=== PATIENT | male | born 1945 | race Caucasian/White ===

== ENCOUNTER 2016-11-10 15:08 | Inpatient (IN) | payer MEDICARE ==
[~2016-11-10] VITALS: Ht 188 cm; Wt 134.7 kg
[2016-11-11] MEDS ORDERED: CARV6.25 PO (10:26)
[2016-11-11] MEDS ORDERED: AMLO5TAB2 PO (10:26)
[2016-11-11] MEDS ORDERED: PRIL20CA9 PO (10:26)
[2016-11-11] MEDS ORDERED: GLIP1TAB60 PO (10:26)
[2016-11-11] MEDS ORDERED: MELO7.5T4 PO (10:26)
[2016-11-11] MEDS ORDERED: SITA1TAB2 PO (10:26)
[2016-11-11] MEDS ORDERED: SIMV20TA PO (10:26)
[2016-11-11] MEDS ORDERED: ALLO300T2 PO (10:26)
[2016-11-11] MEDS ORDERED: HYDR-3580 PO (10:26)
[2016-11-11] MEDS ORDERED: METF1000 PO (10:26)
[2016-11-11] MEDS ORDERED: VITA20004 PO (10:40)
[2016-11-11] MEDS ORDERED: ASPI1TAB69 PO (10:40)
[2016-11-11] MEDS ORDERED: VITA100064 PO (10:40)
[2016-11-11] MEDS ORDERED: OMEGCAP PO (10:40)
[2016-11-11] MEDS ORDERED: MULTTAB67 PO (10:40)
[2016-11-11] MEDS ORDERED: CALC1TAB87 PO (10:40)
--- NOTE | 2016-11-13 12:27 | MH ---
cc: TONY PLATA MD DATE OF ADMISSION 11/19/2016 ADMITTING DIAGNOSIS Severe osteoarthritis of the right hip, pain right hip, and gait disturbance. HISTORY The patient is a 71-year-old white male who has had a rather lengthy history of pain referable to his hip area. He had developed arthritic involvement initially involving his left hip that became unresponsive to conservative management and within the past nine or more years underwent a left total hip arthroplasty that was completed in an uncomplicated manner and the patient having done quite well thereafter. Over the following years, he became gradually more symptomatic with similar pain involving his right hip for which he attempted to conform to ongoing conservative modalities which included use of [id number] anti-inflammatory medications and the patient electing to conform to an exercise program that he had been instructed to follow as related to treatment involving his left hip. He became gradually more incapacitated with pain and subsequently began to require use of a cane as a full-time ambulatory aid. His pain became more difficult to manage and he was subsequently prescribed hydrocodone 7.5 mg per his primary care physician for ongoing management. The patient presented to the underlying physician in October of this year reporting significant incapacitation with regards to all activities of daily living. His x-ray studies revealed severe degenerative changes of his hip joint with subtotal obliteration of the joint space and deformation of the femoral head with suggestion for subchondral cyst formation. Findings and treatment options were reviewed with the patient at that time. The pros and cons of additional conservative modalities versus operative intervention involving total hip replacement were outlined in detail. Emphasis was made regarding the fact that the decision to proceed with surgery would be left entirely to the patient's discretion. The patient readily admitted that he felt he had exhausted all modes of conservative treatment and was not desirous of trying an alternative to additional medication, nor did he feel that additional physical therapy at this time would prove to be of any additional benefit. He was desirous of weaning himself from his cane as his progress might permit and given the favorable outcome that he had noted from previous surgery involving his left hip, he expressed a desire to proceed with similar treatment at this time. In compliance with his wishes, he is currently being admitted in order that right total hip arthroplasty be accomplished. PAST MEDICAL HISTORY Past medical history, hospitalizations and surgeries in addition to his left total hip arthroplasty have included: 1. Insertion of her cardiac stent 2. Colonoscopy 3. Upper endoscopy 4. Medical evaluation for a fever of undetermined origin. The patient's medical illnesses include: 1. Hypertension 2. Gout 3. Diabetes 4. Elevated cholesterol 5. Ankylosing spondylitis His current medications: 1. Amlodipine 5 mg twice daily 2. Carvedilol 6.25 mg twice daily 3. Omeprazole 20 mg daily 4. Allopurinol 300 mg daily 5. Meloxicam 7.5 mg daily 6. Metformin 1000 mg twice daily 7. Simvastatin 20 mg daily 8. Glipizide 0.5 mg twice daily 9. Januvia 100 mg daily 10. Hydrocodone 7.5 mg p.r.n. ALLERGIES THE PATIENT DESCRIBES A DRUG ALLERGY TO LEVAQUIN THAT HAS BEEN ASSOCIATED WITH RASH FORMATION. HE INDICATES THAT CODEINE HAS BEEN ASSOCIATED WITH NAUSEA, ALTHOUGH HE TOLERATED HYDROCODONE WITH ADVERSE SIDE EFFECTS NOTED. REVIEW OF SYSTEMS He does wear glasses. Denies headache, seizure or syncope. No sinus congestion or epistaxis. Auditory acuity intact. No tinnitus. No bleeding gums or dysphagia. Denies cough, shortness of breath, upper respiratory infection, pneumonia or tuberculosis. No angina or heart disease. He is medically managed for hypertension. His appetite is good. Bowel movements are regular. No hepatitis, gallbladder disease or ulcers. There is a positive history of hemorrhoids. No urinary tract infection. History of kidney stones with spontaneous passage. No fractures. No psychiatric illness. His remaining review of systems is unremarkable and noncontributory. FAMILY HISTORY The patient has been 51 years. His is 68 years of age and is indicates to be in good health. Two daughters described as being in good health. Family history is positive for hypertension, diabetes, tuberculosis, cancer involving the kidneys, the stomach, uterus and thyroid and positive history of heart disease. SOCIAL HISTORY The patient has been retired for over 17 years having worked in [employer]. He completed two years of college education. Denies active use of tobacco, ethanol consumption in a limited basis in the form of one to two beers periodically. PHYSICAL EXAMINATION Height 62 inches, weight 226 pounds. GENERAL: An alert, oriented and responsive 71-year-old white male who sits quietly upon the examination table with no obvious distress. HEAD, EARS, EYES, NOSE AND THROAT: Pupils are equally round and reactive to light. Extraocular movements full. Sclerae clear. External nares clear. External auditory canals clear. Dental intact. Mucous membranes pink and moist. Pharynx clear. NECK: Supple. Active range of motion with mild discomfort at the extremes of motion that the patient indicates being chronic in nature. Carotid pulse bilaterally. Trachea midline. Thyroid without enlargement. LUNGS: Clear to auscultation and percussion. No CVA tenderness. No discomfort throughout the dorsal lumbar spine. HEART: Regular rhythm. No murmur or gallop. ABDOMEN: Soft, nontender. Bowel sounds present. RECTAL: Per primary care physician. EXTREMITIES: Right hip, no localizing tenderness to palpation. There is restricted mobility of the hip joint in all ranges assessed being most pronounced with internal rotation and pain at the extremes of motion. No sensation of instability. Straight-leg raising negative at 80 degrees. Dung sign positive. Distal sensory grossly intact. Pronounced antalgic gait with cane support. NEUROLOGIC: Cranial nerves II-XII grossly intact. IMPRESSION Severe osteoarthritis of the right hip, pain right hip, gait disturbance. PLAN Right total hip arthroplasty. The nature of the planned surgical procedure, the potential complications and risks associated, the expectations of surgery and the consent form were thoroughly reviewed with the patient in the presence of his prior to admission to the hospital. Lino has indicated his full understanding regarding all of the above and given consent to proceed with treatment as outlined. Medical evaluation and clearance for surgery will be completed by his primary care physician Dr. Bhavin Harris. MD ENEIDA Key/DON /11:58 AM /12:13 PM
[2016-11-19] MEDS ORDERED: POVIDONE IODINE 5% (ANTISEPSIS KIT) 4 APPLICATIONS EACH NARE PRN (06:15)
[2016-11-19] MEDS ORDERED: SODIUM CHLORID 0.9% 500 ML IV PRN (06:15)
[2016-11-19] MEDS ORDERED: METOPROLOL TARTRATE 25 MG TAB PO PRN (06:15)
[2016-11-19] MEDS ORDERED: INSULIN HUMAN REGULAR 1,000 UNITS/10 ML VIAL SQ PRN (06:15)
[2016-11-19] MEDS ORDERED: LACTATED RINGER'S 1000 ML INJ 1,000 ML IV SCH (06:15)
[2016-11-19 06:29] VITALS: BP 137/86; PULSE 65; RESP 16; TEMP 99.1; O2SAT 97
[2016-11-19] MEDS ORDERED: ceFAZolin 2 GM PREMIX 50 ML ONE (06:39)
[2016-11-19] MEDS ORDERED: TRANEXAMIC ACID 1 GM PRIOR TO PROCEDURE IV SCH ×2 (07:00)
[2016-11-19] MEDS ORDERED: TRANEXAMIC ACID 1 GM POST-OP IV SCH ×2 (07:00)
[2016-11-19] MEDS ORDERED: POVIDONE IODINE 7.5% SCRUB 118 ML BOTTLE TOPICAL SCH (07:00)
[2016-11-19] MEDS ORDERED: ceFAZolin 2 GM PREMIX 50 ML IV SCH (07:00)
[2016-11-19] MEDS ORDERED: MIDAZOLAM HCL 2 MG/2 ML VIAL ONE (07:03)
[2016-11-19] MEDS ORDERED: DEXAMETHASONE SOD PHOS 4 MG/ML VIAL ONE (07:03)
[2016-11-19] MEDS ORDERED: ceFAZolin INJ 1,000 MG VIAL ONE (07:12)
[2016-11-19] MEDS ORDERED: fentaNYL CITRATE 250 MCG/5 ML AMP ONE (09:57)
[2016-11-19] MEDS ORDERED: TRANEXAMIC ACID INJ 1,000 MG in SODIUM CHLORIDE 0.9% INJ 100 ML IV SCH (10:00)
[2016-11-19] MEDS ORDERED: ONDANSETRON HCL 4 MG/2 ML VIAL IVP PRN (10:00)
[2016-11-19] MEDS ORDERED: ACETAMINOPHEN/HYDROcodone 325 MG/5 MG TAB PO PRN ×2 (10:00)
[2016-11-19] MEDS ORDERED: SODIUM CHLORIDE 0.9% FLUSH 5 ML FLUSH IVF PRN (10:00)
[2016-11-19] MEDS ORDERED: ACETAMINOPHEN 325 MG TAB PO PRN (10:00)
[2016-11-19] MEDS ORDERED: Post-op Orders (for Pharmacy) MISC XX ONE (10:00)
[2016-11-19] MEDS ORDERED: NALOXONE HCL 0.4 MG/ML AMP IV PRN (10:00)
[2016-11-19] MEDS ORDERED: MORPHINE SULFATE 30 MG/30 ML PCA IV SCH (10:00)
[2016-11-19] MEDS ORDERED: DOCUSATE SODIUM 100 MG CAP PO PRN (10:00)
[2016-11-19] MEDS ORDERED: MISCELLANEOUS PHARMACY INFORMATION XX ONE (10:00)
[2016-11-19] MEDS ORDERED: diphenhydrAMINE HCL 25 MG CAP PO PRN (10:00)
[2016-11-19] MEDS ORDERED: *morphine SULFATE 8 MG/ML PERIprocedure ONLY ONE ×2 (10:03→10:28)
[2016-11-19] MEDS: DEXT 5%-NACL 0.45% 1000 ML INJ 1,000 ML IV SCH ×2 (10:50→23:24)
--- NOTE | 2016-11-19 11:22 | RADRPT ---
EXAM DATE/TIME: 11/19/2016 11:09 [facility] COMPARISON: No previous studies available for comparison. INDICATIONS : Post op right hip surgery. MEDICAL HISTORY : Hypertension. ENCOUNTER: Initial ACUITY: 1 day PAIN SCORE: 0/10 LOCATION: Right Hip. FINDINGS: The patient is status post a total hip arthroplasty with a bipolar prosthesis. Prosthesis is well-sea mojgan. Alignment is anatomic. A fracture is not appreciated. CONCLUSION: Anatomic alignment. Derrek Roe MD FACR Board Certified Radiologist. This report was verified electronically.
[2016-11-19 12:00] VITALS: BP 144/77; PULSE 82; RESP 17; TEMP 95.5; O2SAT 99
[2016-11-19] MEDS ORDERED: ePHEDrine/NS 25 MG/5 ML SYR IV ONE (12:00)
[2016-11-19] MEDS ORDERED: ONDANSETRON HCL 4 MG/2 ML VIAL IV PUSH ONE (12:00)
[2016-11-19] MEDS ORDERED: PROPOFOL 200 MG/20 ML AMP IV ONE (12:00)
[2016-11-19] MEDS ORDERED: PHENYLEPH/NS 1000 MCG/10 ML SYR IV ONE (12:00)
[2016-11-19] MEDS ORDERED: NEOSTIGMINE 3 MG/3 ML SYR IV ONE (12:00)
[2016-11-19] MEDS ORDERED: LACTATED RINGER'S 1000 ML INJ 2,000 ML IV ONE (12:00)
[2016-11-19 16:00] VITALS: BP 160/85; PULSE 97; RESP 17; TEMP 96.5; O2SAT 94
[2016-11-19] MEDS ORDERED: GLUCAGON 1 MG/ML VIAL OTHER PRN (17:30)
[2016-11-19] MEDS ORDERED: DEXTROSE 50% IN WATER 50 ML VIAL(D50) IV PUSH PRN (17:30)
[2016-11-19] MEDS: ALLOPURINOL 300 MG TAB PO SCH (18:27)
[2016-11-19 20:10] VITALS: BP 132/77; PULSE 95; RESP 17; TEMP 97.3; O2SAT 95
--- NOTE | 2016-11-19 20:15 | MB ---
cc: ARELY SUÁREZ DATE OF CONSULTATION 11/19/2016 DATE OF [address] Zee[address] CONSULTING PHYS[address]IAN [address]. Arely Suárez. REASON FOR CONSULTATION Assist in medical management. HISTORY OF THE PRESENT ILLNESS The patient is a very pleasant 71-year-old male who was admitted with a past history of hypertension, diabetes who has severe osteoarthritis of the right hip. The patient has right hip pain and gets disturbance from a long time. The patient has been taking care by his primary care doctor and then by the orthopedic doctor. The patient failed outpatient therapy. The patient was advised by orthopedic doctor to have a surgery done. The patient had surgery done today. Postsurgically the patient was seen in his room, was sitting in a recliner / chair. At the present time the patient has mild ache in the hip area. There is no nausea or vomiting. He denies any headache, dizziness, chest pain, diaphoresis, palpitations. Denies any abdominal pain. He has no genitourinary symptoms. PAST MEDICAL HISTORY 1. Hypertension. 2. Diabetes. 3. Gout. 4. Elevated cholesterol. 5. Ankylosing spondylitis history. MEDICATIONS Reviewed, please see EMR. ALLERGIES THE PATIENT IS ALLERGIC TO CODEINE AND LEVAQUIN. REVIEW OF SYSTEMS As described in the history of present illness. Otherwise negative for 10 systems. SOCIAL HISTORY The patient used to smoke socially more than 50 years ago. He drinks occasionally. Does not do any drugs. and lives with his . FAMILY HISTORY Positive for hypertension and diabetes. PHYSICAL EXAMINATION GENERAL: The patient is alert and oriented times three. Well built, well-nourished sitting in chair without any apparent distress. VITAL SIGNS: Show the patient is afebrile. Pulse is 82, respiratory rate 17, blood pressure 144/77. Pulse oximetry 99% on 2 liters. HEENT: Head is atraumatic, normocephalic. Eyes, negative conjunctival icterus. Mouth unremarkable. NECK: Supple. Negative increase in JVD. Negative thyromegaly. Central trachea. CHEST: Clear to auscultation. CARDIOVASCULAR: S1 and S2 audible. Unable to hear any S3 gallop. ABDOMEN: Soft, no organomegaly. Positive bowel sounds. MUSCULOSKELETAL: Extremities no cyanosis or pedal edema appreciated. SODDER: Alert and oriented. Normal facial features. Normal power and tone of upper extremities. He can move his toes without any problems. SKIN: Warm and dry. There is a positive dressing on the right side with drain. PSYCHIATRIC: Appropriate mood and affect. LABORATORY DATA No new labs are available. IMAGING X-ray of the hip shows anatomical alignment. ASSESSMENT 1. Severe osteoarthritis of the right hip with gait disturbance status post right total hip arthroplasty, postoperative day number zero. 2. Diabetes. 3. Hypertension. 4. History of high cholesterol. 5. Gout history. RECOMMENDATIONS 1. Continue postop care with pain medication and anticoagulant for DVT as per Ortho. 2. Pain management as per Ortho. 3. Sliding scale insulin coverage for diabetes with low-dose insulin coverage. 4. Monitor blood pressure. 5. We will continue some of home medications as indicated. 6. Hold meloxicam and aspirin from home. 7. We will hold metformin as well. 8. CBC, BMP in the morning. 9. Continue home medications as indicated and appropriate. Condition discussed with the patient and at bedside. Further recommendation to follow as the patient progresses. Thank you Dr. Zee for the consult. We will follow with you. Arely Suárez MD JP/BRENDA /5:25 PM /7:50 PM PT SEEN AND EXAMINED IN DAY OF ADMISSION ABOVE CHART WAS REVIEWED PLAN OF CARE WAS HOMAR GONZALEZ
[2016-11-19] MEDS: amLODIPine BESYLATE 5 MG TAB PO SCH (20:35)
[2016-11-19] MEDS: CARVEDILOL 6.25 MG TAB PO SCH (20:35)
[2016-11-19] MEDS: PRAVASTATIN SOD 40 MG TAB PO SCH (20:35)
[2016-11-19] MEDS ORDERED: ZOLPIDEM TARTRATE 5 MG TAB PO PRN (21:00)
[2016-11-19] MEDS: SODIUM CHLORIDE 0.9% FLUSH 5 ML FLUSH IVF SCH (21:00)
[2016-11-19] MEDS: INSULIN ASPART SUPPLEMENTAL SCALE SQ SCH (21:00)
[2016-11-19] MEDS ORDERED: NON-FORMULARY DRUG (Fish Oil-Cholecalciferol (Omega-3 Fish Oil/Vitamin) 1 CAP) PO SCH (21:00)
[2016-11-20] VITALS (7 sets, daily range): BP systolic 113–147; BP diastolic 66–83; PULSE 79–88; RESP 14–18; TEMP 97–101.6; O2SAT 92–96
[2016-11-20 05:15] LABS: HEMATOCRIT 31.9 % (39.0-51.0); REVIEW FLAG FINAL
[2016-11-20] MEDS: PCA - TOTAL MG MORPHINE DELIVERED PER SHIFT SCH ×3 (06:00→21:44)
[2016-11-20] MEDS: INSULIN ASPART SUPPLEMENTAL SCALE SQ SCH ×4 (06:05→20:22)
[2016-11-20] MEDS ORDERED: HYDR-3516 PO (06:08)
[2016-11-20] MEDS ORDERED: ASPI325T PO (06:08)
--- NOTE | 2016-11-20 06:10 | HHI.FF ---
Face to Face Verification Diagnosis: (1) Degenerative joint disease (DJD) of hip Physical Therapy Gait training Hip: Total hip, Protocol: Right, Abduction pillow while in bed Right LE Weight Bearing: WB as tolerated Right LE Range of Motion: Active ROM Nursing Dressing Changes: Daily dressing change I have seen patient Lino Chavarria on 11/20/16. My clinical findings support the need for the requested home health care services because: Limited ability to care for self High risk of falls I certify that my clinical findings support that this patient is homebound because: Post-op weakness Unsteady gait/balance Unsafe to leave home unassisted Slade Zee MD Nov 20, 2016 06:10
[2016-11-20] MEDS ORDERED: 3-IN3MIS (06:14)
[2016-11-20] MEDS ORDERED: WALKER WHEELS/F1 MIS (06:14)
[2016-11-20] MEDS: DEXT 5%-NACL 0.45% 1000 ML INJ 1,000 ML IV SCH ×2 (06:30→19:00)
[2016-11-20] MEDS: CARVEDILOL 6.25 MG TAB PO SCH ×2 (08:10→20:18)
[2016-11-20] MEDS: MULTIVITAMIN TAB PO SCH (08:10)
[2016-11-20] MEDS: ALLOPURINOL 300 MG TAB PO SCH (08:10)
[2016-11-20] MEDS: RIVAROXABAN 10 MG TAB PO SCH (08:10)
[2016-11-20] MEDS: amLODIPine BESYLATE 5 MG TAB PO SCH ×2 (08:10→20:17)
[2016-11-20] MEDS: CHOLECALCIFEROL (VIT D3) 1000 UNIT TAB PO SCH (08:10)
[2016-11-20] MEDS: PANTOPRAZOLE SOD 20 MG DELAYED RELEASE TAB PO SCH (08:11)
[2016-11-20] MEDS: CALCIUM/VITAMIN D 250 MG/125 U TAB PO SCH (08:11)
--- NOTE | 2016-11-20 12:24 | HHI.PR ---
Subjective Subjective Remarks Sitting up in chair Has just finished working with PT, tolerated well Pain is well managed No nausea, no vomiting Blood glucose was elevated 180s, patient refuses insulin takes oral hypoglycemics at home Was on dextrose solution which has been discontinued No fever Review of Systems Constitutional Constitutional Remarks 12 point review of systems completed, negative except as noted above Vitals/Results Intake & Output 11/19/16 11/19/16 11/20/16 14:59 22:59 06:59 Intake Total 2200 ml 2280 ml 843 ml Output Total 650 ml 370 ml 2375 ml Balance 1550 ml 1910 ml -1532 ml Intake Oral 1080 ml 240 ml IV Total 100 ml 1200 ml 603 ml Other 2100 ml Output Urine Total 300 ml 2300 ml Drainage Total 50 ml 70 ml 75 ml Estimated Blood Loss 600 ml # Voids 2 # Bowel Movements 0 Vital Signs Vital Signs Date Time Temp Pulse Resp B/P Pulse Ox O2 Delivery O2 Flow Rate FiO2 11/20/16 08:36 97.5 84 17 123/74 92 11/20/16 06:00 16 11/20/16 04:50 97.6 85 16 134/73 96 11/20/16 00:55 97.0 87 16 123/75 94 11/19/16 20:10 97.3 95 17 132/77 95 11/19/16 16:00 96.5 97 17 160/85 94 CBC/BMP: 11/20/16 0444 Lab Results Laboratory Tests Test 11/20/16 04:44 Hemoglobin 10.9 GM/DL Hematocrit 31.9 % Physical Exam General General Appearance: Well Developed, Well Nourished, No Acute Distress, Comfortable Eyes Eye Exam: Pupils Equal, Pupils Reactive Ears & Nose Ears & Nose Exam: Nasal Mucosa Seama Throat Throat Exam: Oral Mucosa Seama & Moist Neck Neck Exam: Neck Supple, Trachea Midline Pulmonary Resp Exam: Clear Bilaterally, No Distress Cardiology CV Exam: Regular, Good Perfusion Gastrointestinal/Abdomen GI Exam: Soft, Non-Tender, Bowel Sounds Present, Non-Distended Musculoskeletal MS Exam: Joints Intact MS Remarks Right hip dressing intact, drain in place Integumentary Skin Exam: Warm, Dry Extremeties Extremities Exam: No Edema, Pedal Pulses Palpable Neurologic Neuro Exam: Alert, Awake, Oriented, Speech Clear, [employer] Equal Psychiatric Psych Exam: Appropriate Responses VTE Prophylaxis VTE Prophylaxis Device: TEDs VTE Remarks Xarelto PUD Prophylasis PUD Prophylaxis: Protonix Assessment/Plan Problem List: (1) Degenerative joint disease (DJD) of hip (2) Diabetes 1.5, managed as type 2 (3) HTN (hypertension) Assessment/Plan Continue postop care with pain medication and anticoagulant for DVT as per ortho. Pain management as per Ortho. Blood glucose elevated, was on Dextrose IV, refusing insulin Sliding scale insulin coverage for diabetes with low-dose insulin coverage. DC Dextrose continue Januvia Monitor blood pressure. Continue some of home medications as indicated. H&H stable Continue with Xarelto for DVT prophylaxis Protonix for GI prophylaxis Labs in the morning D/W RN D/W Dr. Christopher D/W pt This patient was seen by myself and Dr. Christopher, this note is written on her behalf Problem Qualifiers (1) Degenerative joint disease (DJD) of hip: Qualified Code: M16.11 - Osteoarthritis of right hip, unspecified osteoarthritis type (2) HTN (hypertension): Qualified Code: I10 - Essential hypertension Meggan AminP Nov 20, 2016 12:24
[2016-11-20] MEDS: PRAVASTATIN SOD 40 MG TAB PO SCH (20:17)
[2016-11-20] MEDS: SODIUM CHLORIDE 0.9% FLUSH 5 ML FLUSH IVF SCH (21:00)
[2016-11-21] MEDS: DEXT 5%-NACL 0.45% 1000 ML INJ 1,000 ML IV SCH (02:24)
[2016-11-21 04:00] VITALS: BP 156/80; PULSE 94; RESP 16; TEMP 99.6; O2SAT 95
[2016-11-21 05:11] LABS: HEMATOCRIT 31.7 % (39.0-51.0); MEAN CELL VOLUME 88.2 FL (80.0-100.0); MEAN CORPUSCULAR HEMOGLOBIN 30.4 PG (27.0-34.0); MEAN CORPUSCULAR HGB CONC 34.4 % (32.0-36.0); PLATELET COUNT 142 TH/MM3 (150-450); RED BLOOD COUNT 3.59 MIL/MM3 (4.50-5.90); RED CELL DISTRIBUTION WIDTH 15.3 % (11.6-17.2); REVIEW FLAG FINAL; WHITE BLOOD COUNT 11.4 TH/MM3 (4.0-11.0)
[2016-11-21 05:42] LABS: BICARBONATE 30.6 MEQ/L (21.0-32.0)
[2016-11-21 05:48] LABS: POTASSIUM 2.7 MEQ/L (3.5-5.1)
[2016-11-21] MEDS: INSULIN ASPART SUPPLEMENTAL SCALE SQ SCH (05:53)
[2016-11-21 08:00] VITALS: BP 149/82; PULSE 89; RESP 16; TEMP 99.8; O2SAT 96
[2016-11-21] MEDS: amLODIPine BESYLATE 5 MG TAB PO SCH (08:27)
[2016-11-21] MEDS: CALCIUM/VITAMIN D 250 MG/125 U TAB PO SCH (08:27)
[2016-11-21] MEDS: ALLOPURINOL 300 MG TAB PO SCH (08:27)
[2016-11-21] MEDS: RIVAROXABAN 10 MG TAB PO SCH (08:27)
[2016-11-21] MEDS: CARVEDILOL 6.25 MG TAB PO SCH (08:27)
[2016-11-21] MEDS: PANTOPRAZOLE SOD 20 MG DELAYED RELEASE TAB PO SCH (08:28)
[2016-11-21] MEDS: MULTIVITAMIN TAB PO SCH (08:28)
[2016-11-21] MEDS: CHOLECALCIFEROL (VIT D3) 1000 UNIT TAB PO SCH (08:28)
[2016-11-21] MEDS ORDERED: CYANOCOBALAMIN 1,000 MCG TAB PO SCH (09:00)
[2016-11-21] MEDS ORDERED: POTASSIUM CHLORIDE 25 MEQ EFFERVESCENT TAB PO ONE (10:00)
--- NOTE | 2016-11-21 10:09 | MP ---
cc: TONY PLATA DATE OF OPERATION 19 November 2016 PREOPERATIVE DIAGNOSES Severe osteoarthritis of the right hip. Pain right hip. Gait disturbance. POSTOPERATIVE DIAGNOSES Severe osteoarthritis of the right hip. Pain right hip. Gait disturbance. PROCEDURE Right total hip arthroplasty. SURGEON MD Yayo ANESTHESIA General endotracheal. INDICATIONS A 71-year-old white male with a lengthy history of pain referable to his right hip. He developed an arthritic involvement initially involving his left hip that became unresponsive to conservative management and within the past 9 years he had undergone a left total hip arthroplasty that was completed in an uncomplicated manner and the patient having done well thereafter. Over the following years he became progressively more symptomatic with similar pain involving his right hip for which he conformed to conservative management which included use of anti-inflammatory medication and the patient electing to conform to his own exercise program as he had been instructed as related to his previous left hip surgery. He became gradually more incapacitated with pain and subsequently began to require use the cane as a full-time ambulatory aid. His pain was subsequently requiring hydrocodone for pain management as prescribed by his primary care physician. He presented to the undersigned physician in October of this year reporting significant incapacitation as regards to all activities of daily living. His x-ray studies revealed severe degenerative changes of his hip joint with subtotal obliteration of the joint space and deformation of the femoral head with suggestion for subchondral cyst formation. The findings and treatment options were reviewed with the patient at that time. The pros and cons of continuing with additional conservative modalities versus operative intervention involving total hip replacement were outlined in detail. Emphasis was made regarding the fact that the decision to proceed with surgery would be left entirely to the patient's discretion. The patient readily admitted that he felt he had exhausted all modes of conservative treatment and, given the degree of pain he was experiencing, he was desirous of proceeding with operative treatment as discussed. In compliance with his current request he was scheduled for admission at this time in order that total hip arthroplasty be accomplished. FORMAT Following induction of satisfactory general anesthesia by endotracheal intubation as completed per the Department of Anesthesia, the patient was positioned upon the operating table in a left lateral decubitus fashion. The right hip and lower extremity proper were isolated with a U drape, thereafter being prepped with Betadine solution and draped into a sterile field in the routine manner. Prior to initiation of the actual procedure the standard time-out protocol was completed. All parameters were appropriately addressed and confirmed by operating room personnel. A standard posterolateral approach to the hip was initiated through a sharp skin incision and developed through underlying subcutaneous tissue with hemostasis maintained by electrocautery. By deepening dissection the fascia overlying the gluteus musculature was exposed and thereafter sharply incised to the limits of the incision. The underlying gluteus fibers were bluntly divided. Progressive dissection facilitated exposure of the short external rotators structures. The piriformis tendon was utilized as an anatomical landmark and division of these structures was completed in a superior to inferior orientation and reflected medially exposing the posterior capsule. The sciatic nerve was protected. An L-shaped capsulotomy was accomplished through which a posterior dislocation of the femoral head was completed. Examination revealed severe degenerative changes with significant erosion of articular cartilage, underlying subchondral bone exposed and hypertrophic bony reaction. The femoral template was positioned for alignment and orientation. The neck was scored and thereafter divided with a power saw, the amputated segment being passed to the back table as surgical specimen. Attention was initially directed to the proximal femur. Cancellus bone was harvested. The tapered reamer was inserted for alignment orientation. Sequential rasping and broaching was accomplished from 7 through 13-mm with the calcar mario being utilized at the 13-mm stage. The 13-mm stem was determined to be satisfactory. With a trial component removed, attention was redirected to the acetabulum. The labrum and reactive soft tissue were sharply excised. Progressive reaming was accomplished from 48 through 57 mm. The 58 trial shell was positioned and determined to be satisfactory. With all trial components being removed, the wound was copiously irrigated with pulsating antibiotic solution, hemostasis being maintained by electrocautery. Harvested cancellous bone was digitally impacted into the depths of the acetabulum and thereafter a 58-mm RingLoc acetabular shell was firmly seated in approximately 45 degrees inclination to the horizontal and slight anteversion. A single 25 mm, 6.5 cancellous screw was inserted superiorly to augment fixation. The permanent high-wall acetabular liner was affixed at the acetabular shell. The 13-mm trial femoral broach was repositioned and a trial reduction followed utilizing a 36-mm modular head with -6-mm neck length adapter. The hip readily reduced and was carried through a passive range of motion with stability demonstrated at 90 degrees flexion and 45 degrees internal rotation. An open dislocation was completed. The trial femoral components being removed, the canal was thoroughly irrigated and dried and thereafter the permanent 13-mm standard femoral stem, ECHO Bimetric configuration was firmly seated to which a 36-mm ceramic head with -6-mm neck length adapter attached and open reduction completed. A repeat range of motion again noted stability as previously described. Final irrigation was accomplished with hemostasis maintained. The posterior capsule was repaired with 0 Vicryl suture. The piriformis tendon and short external rotator structures were reapproximated in a similar manner. Hemovac drain tubes were inserted through superior stab wounds. The fascia of the gluteus musculature was reapproximated with a running 0 Vicryl suture. The remaining portion of the wound was closed in layers in the routine manner, skin margins being reapproximated with a running subcuticular 3-0 Vicryl suture over which Steri-Strips were applied. Xeroform gauze and a bulky dry sterile dressing were placed. The patient was repositioned into a supine orientation where an abduction splint was attached. Anesthesia was discontinued and the patient thus transferred to a hospital bed and returned to the recovery room in satisfactory condition having tolerated his operative procedure well. Estimated blood loss approximately 600 cc as determined per Anesthesia. All implants were of the [employer] collision repairer. MD ENEIDA Key/RIA /9:51 AM /9:53 AM
--- NOTE | 2016-11-25 22:02 | MD ---
cc: JULY HARRIS M.D.TONY LEVY ADMISSION DATE: 11/19/2016 DISCHARGE DATE: 11/21/2016 Cc. ADMISSION DIAGNOSIS Severe osteoarthritis of the right hip, pain right hip, gait disturbance. DISCHARGE DIAGNOSIS Severe osteoarthritis of the right hip, pain right hip, gait disturbance. HISTORY OF THE PRESENT ILLNESS A 71-year-old white male with a lengthy history of pain referable to his hip area. He developed arthritic involvement initially involving his left hip that became unresponsive to conservative management and within the past nine or more years he underwent a left total hip arthroplasty which was completed in an uncomplicated manner and the patient having done well thereafter. Over the following years he became progressively more symptomatic with similar pain involving his right hip for which he attempted to conform to conservative modalities which included use of anti-inflammatory medication and following an exercise program in conjunction with what he had been instructed to do as related to treatment involving his left hip. He became progressively more incapacitated with pain that subsequently required use of a cane as a full-time ambulatory aid and hydrocodone for pain management. He presented to the undersigned physician in October of this year reporting significant incapacitation with regards to all activities of daily living. His x-ray studies revealed severe degenerative changes of the hip joint with subtotal obliteration of the joint space and deformation of the femoral head with suggestion for subchondral cyst formation. Findings and treatment options were reviewed with the patient at that time. The pros and cons of additional conservative modalities versus operative intervention involving total hip replacement were outlined in detail. Emphasis was made regarding the fact that the decision to proceed with surgery would be left entirely to the patient's discretion. The patient readily admitted that his symptoms had progressed to a point in time where he was ready to proceed in this direction and in compliance with his wishes he was scheduled for admission at this time in order that the above be accomplished. His physical examination at the time admission revealed no localizing tenderness about the right hip. There is restricted mobility of the hip joint in all ranges assessed being most pronounced with internal rotation and pain at the extreme of motion. No sensation of instability. Straight-leg raising negative at 80 degrees. Dung sign positive. Distal sensory grossly intact. Pronounced antalgic gait. HOSPITAL COURSE Prior to admission to the hospital the patient had undergone medical evaluation and clearance for surgery as completed by his primary care physician Dr. July Harris. He was taken to the operating room on 19 November 2016 and on that date underwent a right total hip arthroplasty completed in an uncomplicated manner. The patient was noted to have tolerated his operative procedure well and his postoperative course stable thereafter. Hemoglobin and hematocrit assessment postoperatively was 10.9 and 31.9, respectively. The patient was progressively mobilized under guidance of physical therapy being permitted weightbearing to tolerance about the right lower extremity. Follow up examination of his surgical wound noted to be intact healing favorably, no evidence of infection. Medical followup per the hospitalist service. DVT prophylaxis initiated. food services manager consulted to assist with discharge planning. The patient had indicated his desire to be discharged home and continue his rehabilitation on outpatient basis. Plans were finalized in this regard and pending medical clearance he was scheduled for discharge on the second postoperative day at which time he was noted to be making favorable progress with regards to his rehab program. He was scheduled be seen in office followup in approximately 4 weeks. His condition at the time of discharge stable. Prognosis, favorable. MEDICATIONS Discharge medications included 1. Hydrocodone 5/325, #60. 2. Aspirin 325 mg one twice daily for 4 weeks #60. MD ENEIDA Key/KK /7:15 AM /9:52 PM
== END 2016-11-21 11:55 | disposition home health service (06) | DRG 470 ==
LOC: HSDI 11-19 05:28 → N06B 11-19 11:29
PROVIDERS: ADMIT Orthopaedic Surgery; ATTEND Orthopaedic Surgery
PROC: 0SR903A Replacement of Right Hip Joint with Ceramic Synthetic Substitute, Uncemented, Open Approach (ICD-10-PCS; principal; 2016-11-19 07:14)
DX: M16.11 Unilateral primary osteoarthritis, right hip (principal); E11.9 Type 2 diabetes mellitus without complications; M45.9 Ankylosing spondylitis of unspecified sites in spine; Z96.642 Presence of left artificial hip joint; I10 Essential (primary) hypertension; I25.10 Atherosclerotic heart disease of native coronary artery without angina pectoris; Z95.5 Presence of coronary angioplasty implant and graft; M10.9 Gout, unspecified; E78.00 Pure hypercholesterolemia, unspecified; Z79.84 Long term (current) use of oral hypoglycemic drugs; Z82.49 Family history of ischemic heart disease and other diseases of the circulatory system; Z83.3 Family history of diabetes mellitus; Z80.51 Family history of malignant neoplasm of kidney; Z80.0 Family history of malignant neoplasm of digestive organs; Z80.49 Family history of malignant neoplasm of other genital organs; Z80.8 Family history of malignant neoplasm of other organs or systems; Z88.1 Allergy status to other antibiotic agents; Z88.5 Allergy status to narcotic agent; Z87.891 Personal history of nicotine dependence
CPT/HCPCS: 73501; 80048; 82948; 85014; 85018; 85027; 86850; 86900; 86901; 88304; 88311; C1776; J0690; J1100; J2250; J2270; J2370; J2405; J2710; J3010; J7120

== ENCOUNTER → 2016-11-11 | Outpatient (CLI) | payer MEDICARE ==
[~2016-11-11] MED LIST: 3-IN3MIS; ALLO300T2 PO; AMLO2.5T PO; AMLO5TAB2 PO; ANTI12.5 PO; ASPI1TAB69 PO; ASPI325T PO; ASPI81 PO; CALC1TAB87 PO; CARV6.25 PO; FISH1000 PO; GLIP1TAB60 PO; GLIP2.5T6 PO; GLUCTAB PO; HYDR-3516 PO; HYDR-3580 PO; MELO7.5T4 PO; METF1000 PO; MULTTAB67 PO; OMEGCAP PO; OMEP20CA5 PO; OYST500T77 PO; PRIL20CA9 PO; QUEN12.5 PO; SIMV20TA PO; SITA1TAB2 PO; SULF1TAB47 PO; TAB-TAB PO; VICOTAB4 PO; VITA100064 PO; VITA20004 PO; WALKER WHEELS/F1 MIS; ZOCO40TA PO
[2016-11-11 10:44] LABS: AUTOMATED NEUTROPHIL # 4.3 TH/MM3 (1.8-7.7); BASOPHIL % 0.5 % (0.0-2.0); EOSINOPHIL # 0.2 TH/MM3 (0-0.4); EOSINOPHIL % 2.4 % (0.0-4.0); HEMATOCRIT 40.9 % (39.0-51.0); HEMO FLAGS DIFF FINAL; LYMPH % 30.8 % (9.0-44.0); LYMPHOCYTE # 2.2 TH/MM3 (1.0-4.8); MEAN CELL VOLUME 88.9 FL (80.0-100.0); MEAN CORPUSCULAR HEMOGLOBIN 29.7 PG (27.0-34.0); MEAN CORPUSCULAR HGB CONC 33.4 % (32.0-36.0); MONO % 7.2 % (0.0-8.0); NEUT % 59.1 % (16.0-70.0); PLATELET COUNT 171 TH/MM3 (150-450); RED CELL DISTRIBUTION WIDTH 15.6 % (11.6-17.2); WHITE BLOOD COUNT 7.3 TH/MM3 (4.0-11.0)
[2016-11-11 10:45] LABS: PROTHROMBIN TIME - PATIENT 11.2 SEC (9.8-11.6)
[2016-11-11 11:07] LABS: BICARBONATE 32.6 MEQ/L (21.0-32.0); POTASSIUM 3.4 MEQ/L (3.5-5.1)
--- NOTE | 2016-11-11 12:05 | RADRPT ---
EXAM DATE/TIME: 11/11/2016 10:54 [facility] COMPARISON: No previous studies available for comparison. INDICATIONS : Evaluate for pneumonia, pneumothorax, or communicable disease. Pre op for hip surgery MEDICAL HISTORY : Hypertension. SURGICAL HISTORY : Heart stents. ENCOUNTER: Initial ACUITY: 1 day PAIN SCORE: 0/10 LOCATION: Bilateral chest FINDINGS: The cardiac silhouette is normal in transverse diameter. The lungs are free of acute parenchymal opac ity. No effusions are identified. There are flowing osteophytes along the anterior aspect of several thoracic vertebral bodies compatible with diffuse idiopathic skeletal hyperostosis (DISH). CONCLUSION: 1. No acute cardiopulmonary disease. Eddie Garcia MD on November 11, 2016 at 11:55 Board Certified Radiologist. This report was verified electronically.
[2016-11-11 12:18] LABS: BLOOD, URINE NEG (NEG); COMMENT (UR) CULT NOT INDICATED; CULTURE IF INDICATED CULT NOT INDICATED; GLUCOSE,URINE NEG (NEG); KETONE, URINE TRACE mg/dL (NEG); NITRITE,URINE NEG (NEG); URINE COLOR YELLOW (YELLW/STRAW)
== END ==
LOC: CPRE 09:45
PROVIDERS: ATTEND Orthopaedic Surgery
DX: Z01.811 Encounter for preprocedural respiratory examination (principal); Z01.812 Encounter for preprocedural laboratory examination; M16.11 Unilateral primary osteoarthritis, right hip
CPT/HCPCS: 36415; 71020; 80048; 81001; 85025; 85610